=== PATIENT | female | born 2000 | race Caucasian/White ===

== ENCOUNTER 2022-11-04 11:11 | Emergency (ER) | payer MEDICAID | END 2022-11-04 12:38 | disposition home or self-care (01) | LOC: JD.ED 11:11 | DX: L02.11 Cutaneous abscess of neck (principal); Z79.899 Other long term (current) drug therapy | CPT/HCPCS: 99282 ==

== ENCOUNTER 2023-06-19 05:36 | Inpatient (IN) | payer MEDICAID ==
[~2023-06-19 05:36] MED LIST: Sodium Chloride 0.9% 10 ML Syringe FLUSH PRN
[2023-06-19] MEDS ORDERED: ceFAZolin 2 GM in Sodium Chloride 0.9% 100 ML IV PRN (06:00)
[2023-06-19] MEDS: Lactated Ringers 1,000 ML IV SCH ×2 (06:04→07:13)
[2023-06-19 06:17] LABS: BASOPHILS ABSOLUTE AUTO 0.01 K/mm3 (0.01-0.08); BASOPHILS PERCENT AUTO 0.1 % (0.1-1.2); EOSINOPHILS ABSOLUTE AUTO 0.07 K/mm3 (0.04-0.36); EOSINOPHILS PERCENT AUTO 0.6 (0.7-5.8); HEMATOCRIT 33.5 % (34.1-44.9); HEMOGLOBIN 10.4 gm/dl (11.2-15.7); IMMATURE GRAN ABSOLUTE AUTO 0.05 K/mm3 (0.00-0.10); IMMATURE GRAN PERCENT AUTO 0.4 % (<=1.0); LYMPHOCYTES ABSOLUTE AUTO 3.88 K/mm3 (1.18-3.74); LYMPHOCYTES PERCENT AUTO 34.7 % (19.3-51.7); MEAN CORPUSCULAR HEMOGLOBIN 22.9 pg (25.6-32.2); MEAN CORPUSCULAR VOLUME 73.8 fl (79.4-94.8); MEAN PLATELET VOLUME 10.1 fl (9.4-12.3); MONOCYTES ABSOLUTE AUTO 0.96 K/mm3 (0.24-0.36); MONOCYTES PERCENT AUTO 8.6 % (4.7-12.5); NEUTROPHILS PERCENT AUTO 55.6 % (34.0-71.1); PLATELET COUNT,PLT 351 K/mm3 (182-369); RED BLOOD CELL COUNT 4.54 M/mm3 (3.98-5.22); WHITE BLOOD CELL COUNT,WBC 11.17 K/mm3 (3.98-10.04)
[2023-06-19] MEDS ORDERED: Citric Acid/Sodium Citrate Solution 30 ML Cup PO ONE (07:00)
[2023-06-19] MEDS ORDERED: Metoclopramide 10 MG/2 ML SDV IVPUSH ONE (07:00)
[2023-06-19 07:06] LABS: BARBITURATE SCREEN,URINE NEGATIVE (CUTOFF=200); BENZODIAZEPINES SCREEN,URINE NEGATIVE (CUTOFF=150); BUPRENORPHINE SCREEN,URINE NEGATIVE (CUTOFF=10); METHADONE SCREEN, URINE NEGATIVE (CUTOFF=200); METHAMPHETAMINES SCREEN, URINE NEGATIVE (CUTOFF=500); OXYCODONE SCREEN,URINE NEGATIVE (CUT0FF=100); PROPOXYPHENE SCREEN,URINE NEGATIVE (CUTOFF=300); THC SCREEN,URINE 20 NG/ML NEGATIVE (CUTOFF=50)
[2023-06-19 07:10] LABS: AMPHETAMINES SCREEN, URINE NEGATIVE (CUTOFF=500)
[2023-06-19] MEDS ORDERED: Morphine PF 1 MG/ML Amp ONE (07:11)
[2023-06-19] MEDS ORDERED: fentaNYL 100 MCG/2 ML SDV ONE ×2 (07:11→08:08)
[2023-06-19] MEDS ORDERED: Oxytocin 10 Units/1 ML SDV ONE ×2 (07:12→08:27)
[2023-06-19] MEDS ORDERED: ceFAZolin 2 GM Vial ONE (07:37)
[2023-06-19] MEDS ORDERED: Bupivacaine 0.5% 30 ML SDV ONE (07:58)
[2023-06-19] MEDS ORDERED: Oxytocin/Lactated Ringers 10 UNIT/1,000 ML BAG IV SCH (08:00)
[2023-06-19] MEDS ORDERED: Dexmedetomidine 200 MCG/2 ML SDV ONE (08:01)
[2023-06-19] MEDS ORDERED: Lactated Ringers 1,000 ML ONE ×2 (08:17→08:27)
[2023-06-19] MEDS ORDERED: Ondansetron 4 MG/2 ML SDV ONE (08:20)
[2023-06-19] MEDS ORDERED: Ketorolac 30 MG/ML SDV ONE (08:20)
[2023-06-19] MEDS ORDERED: Ondansetron 4 MG/2 ML SDV IVPUSH PRN (08:45)
[2023-06-19] MEDS ORDERED: fentaNYL 100 MCG/2 ML SDV IVPUSH PRN (08:45)
[2023-06-19] MEDS ORDERED: diphenhydrAMINE 50 MG/ML SDV IVPUSH PRN ×2 (08:45→09:57)
[2023-06-19] MEDS ORDERED: Sodium Chloride 0.9% 10 ML Syringe FLUSH SCH (09:00)
[2023-06-19] MEDS ORDERED: Docusate Sodium 100 MG Cap PO PRN (09:57)
[2023-06-19] MEDS ORDERED: Ondansetron 4 MG/2 ML SDV IV PRN (09:57)
[2023-06-19] MEDS ORDERED: Acetaminophen/oxyCODONE 325-5 MG Tab PO PRN (09:57)
[2023-06-19] MEDS ORDERED: Naloxone 0.4 MG/ML SDV IVPUSH PRN (09:57)
[2023-06-19] MEDS ORDERED: ePHEDrine 50 MG/ML SDV IVPUSH PRN (09:57)
[2023-06-19] MEDS ORDERED: Dextrose 5%-Lactated Ringers 1,000 ML IV SCH (09:57)
[2023-06-19] MEDS: Sertraline 50 MG Tab PO SCH (13:44)
[2023-06-19] MEDS: Ketorolac 30 MG/ML SDV IVPUSH SCH ×2 (14:42→20:27)
[2023-06-20] MEDS: Ketorolac 30 MG/ML SDV IVPUSH SCH (02:52)
[2023-06-20 06:15] LABS: HEMATOCRIT 31.1 % (34.1-44.9); HEMOGLOBIN 9.6 gm/dl (11.2-15.7); MEAN CORPUSCULAR HEMOGLOBIN 23.1 pg (25.6-32.2); MEAN CORPUSCULAR HGB CONC 30.9 g/dl (32.2-35.5); MEAN CORPUSCULAR VOLUME 74.9 fl (79.4-94.8); MEAN PLATELET VOLUME 10.2 fl (9.4-12.3); PLATELET COUNT,PLT 315 K/mm3 (182-369); RED BLOOD CELL COUNT 4.15 M/mm3 (3.98-5.22); WHITE BLOOD CELL COUNT,WBC 13.57 K/mm3 (3.98-10.04)
[2023-06-20] MEDS ORDERED: Ibuprofen 600 MG Tab PO PRN (08:30)
[2023-06-20] MEDS: Sertraline 50 MG Tab PO SCH (10:40)
[2023-06-20] MEDS: Acetaminophen/oxyCODONE 325-5 MG Tab PO PRN ×2 (15:25→20:14)
[2023-06-21] MEDS: Acetaminophen/oxyCODONE 325-5 MG Tab PO PRN (07:35)
[2023-06-21] MEDS: Sertraline 50 MG Tab PO SCH (09:03)
[2023-06-21] MEDS ORDERED: Measles, Mumps & Rubella Vaccine 0.5 ML SDV SUBCUT ONE (10:00)
== END 2023-06-21 13:09 | disposition home or self-care (01) | DRG 788 ==
LOC: JD.OB 05:36
PROVIDERS: ADMIT Obstetrics & Gynecology; ATTEND Obstetrics & Gynecology
PROC: 10D00Z1 Extraction of Products of Conception, Low, Open Approach (ICD-10-PCS; principal; 2023-06-19)
DX: O36.5930 Maternal care for other known or suspected poor fetal growth, third trimester, not applicable or unspecified (principal); O34.211 Maternal care for low transverse scar from previous cesarean delivery; Z37.0 Single live birth; Z3A.37 37 weeks gestation of pregnancy
CPT/HCPCS: 36415; 59025; 80306; 85025; 85027; 86592; 86850; 86900; 86901; 90471; 90707; 94762; A9270-GY; J0690; J1885; J2274; J2405; J2590; J2765; J3010; J3490; J7120; J7121

== ENCOUNTER 2023-12-04 09:41 | Emergency (ER) | payer MEDICAID ==
[2023-12-04] MEDS ORDERED: Ketorolac 60 MG/2 ML SDV IM ONE (11:07)
== END 2023-12-04 11:40 | disposition home or self-care (01) ==
LOC: JD.ED 09:41
DX: K08.89 Other specified disorders of teeth and supporting structures (principal); Z86.16 Personal history of COVID-19
CPT/HCPCS: 96372; 99282; J1885; 99283